=== PATIENT | male | born 1970 | race Caucasian/White ===

== ENCOUNTER 2019-01-08 16:55 | Emergency (ER) | payer MEDICAID ==
[~2019-01-08] VITALS: Ht 165.1 cm; Wt 80.0 kg
[~2019-01-08 16:55] MED LIST: AZIT250T PO; DICY10CA40 PO; DOCU-144 PO; HYDR-762 PO; ONDA4TAB35 PO
[2019-01-08 17:01] VITALS: Ht 165.1 cm; Wt 80.0 kg
[2019-01-08] MEDS ORDERED: SOD CHLORIDE 0.9% 800 ML IV ONE (17:30)
[2019-01-08] MEDS ORDERED: INSULIN LISPRO 100 UNIT/ML VIAL SC ONE (20:00)
[2019-01-08] MEDS ORDERED: ACCU-CHEK XX ONE (20:00)
--- NOTE | 2019-01-08 20:29 | ERD ---
ER Documentation Chief Complaint Chief Complaint Whole body paresthesia HPI This is a 48-year-old gentleman history of diabetes who presents with elevated blood sugars. He is describing paresthesia. For some reason at triage it was documented that he has a facial droop but this is not corroborated on bedside examination, patient report and family report. The patient describes paresthesias to his entire body worse to the left upper extremity and bilateral lower extremities. He states compliance with his diabetes medication. He denies any slurred speech, facial asymmetry, motor weakness. Patient states that his blood sugars been slightly elevated in the last several days. He describes compliance with his medication regimen. ROS All systems reviewed and are negative except as per history of present illness. Medications Home Meds Discontinued Scripts Dicyclomine HCl (Dicyclomine HCl) 10 Mg Capsule, 10 MG PO QID, #20 CAP Prov:LAMBERTO MOORE 04/01/15 Docusate Sodium* (Colace*) 100 Mg Capsule, 100 MG PO DAILY, #10 Prov:LAMBERTO MOORE 04/01/15 Azithromycin* (Zithromax*) 250 Mg Tablet, 250 MG PO DAILY, #4 TAB Prov:VARUN LACKEY MD 03/29/15 Ondansetron Hcl* (Zofran* ODT) 4 mg -ODT Tab.disper, 4 MG PO Q6 PRN for NAUSEA AND/OR VOMITING, #10 TAB Prov:DIANE ALCANTAR MD 03/29/15 Hydrocodone Bit-Acetaminophen* ([place]*) 10-325 Mg Tablet, 1 TAB PO Q6 PRN for PAIN, #7 TAB Prov:DIANE ALCANTAR MD 03/29/15 Allergies Allergies: Coded Allergies: No Known Allergy (Unverified , 01/08/19) PMhx/Soc History of Surgery: No Anesthesia Reaction: No Hx Neurological Disorder: No Hx Respiratory Disorders: No Hx Cardiac Disorders: Yes (HIGH CHOLESTEROL ) Hx Psychiatric Problems: No Hx Miscellaneous Medical Probl: Yes (DM ) Hx Alcohol Use: No Hx Substance Use: No Hx Tobacco Use: No Smoking Status: Never smoker FmHx Family History: diabetes Physical Exam Vitals Vital Signs Date Temp Pulse Resp B/P (MAP) Pulse Ox O2 O2 Flow FiO2 Time Delivery Rate 01/08/19 65 14 113/80 97 Room Air 18:52 (91) 01/08/19 69 18 112/63 99 Room Air 18:06 (79) 01/08/19 98.3 83 18 131/81 100 17:01 (98) Physical Exam General: Well developed, well nourished, no acute distress Head: Normocephalic, atraumatic. Eyes: Pupils equally reactive, EOM intact ENT: Moist mucous membranes Neck: Supple, no lymphadenopathy Respiratory: Lungs clear bilaterally, no distress Cardiovascular: RRR, no murmurs, rubs, or gallops Abdominal: Soft, non-tender, non-distended, no peritoneal signs : Deferred MSK: No edema, no unilateral swelling, 5/5 strength Neurologic: Alert and oriented, moving all extremities, normal speech, no focal weakness, no cerebellar signs, no pronator drift, normal rapid alternating mov ements, steady gait, no sensory deficit, normal finger to nose, no facial asymmetry Skin: No rash Psych: Normal mood Result Diagram: 01/08/19 1710 01/08/19 1710 Results 24 hrs Laboratory Tests Test 01/08/19 17:04 01/08/19 17:10 01/08/19 17:17 01/08/19 20:18 Bedside Glucose 372 mg/dL 235 mg/dL White Blood 6.5 10^3/ul Count Red Blood Count 5.15 10^6/ul Hemoglobin 15.4 g/dl Hematocrit 44.3 % Mean Corpuscular 86.0 fl Volume Mean Corpuscular 29.9 pg Hemoglobin Mean Corpuscular 34.8 g/dl Hemoglobin Macy nt Red Cell 11.6 % Distribution Width Platelet Count 142 10^3/UL Mean Platelet 11.6 fl Volume Immature 0.300 % Granulocytes % Neutrophils % 66.8 % Lymphocytes % 25.0 % Monocytes % 5.7 % Eosinophils % 1.7 % Basophils % 0.5 % Nucleated Red 0.0 /100WBC Blood Cells % Immature 0.020 10^3/ul Granulocytes # Neutrophils # 4.3 10^3/ul Lymphocytes # 1.6 10^3/ul Monocytes # 0.4 10^3/ul Eosinophils # 0.1 10^3/ul Basophils # 0.0 10^3/ul Nucleated Red 0.0 10^3/ul Blood Cells # Sodium Level 135 mmol/L Potassium Level 4.2 mmol/L Chloride Level 102 mmol/L Carbon Dioxide 24 mmol/L Level Anion Gap 9 Blood Urea 18 mg/dl Nitrogen Creatinine 0.47 mg/dl Est Glomerular > 60 mL/min Filtrat Rate mL/min Glucose Level 412 mg/dl Calcium Level 9.4 mg/dl Phosphorus Level 4.2 mg/dl Magnesium Level 1.7 mg/dl Troponin I < 0.012 ng/ml Blood Gas Blood venous Specimen Source Arterial Blood 01/08/2019 5:28:0 Date Drawn 5 PM Arterial Blood OTHER Gas Puncture Site Deni Test N/A Venous Blood pH 7.382 Venous Blood 44.0 mmHG pCO2 (Temp Corrected) Venous Blood pO2 44.7 mmHG (Temp Corrected) Venous Blood 25.6 mmol/L HCO3 Venous Blood 81.7 mmHG Oxygen Saturation Venous Blood 0.2 mmol/L Base Excess Venous Blood 15.2 g/dl Total Hemoglobin Venous Blood 81.2 % Oxyhemoglobin Venous Blood 0.1 % Methemoglobin Blood Gas A-a O2 52.3 mmHg Differential Carboxyhemoglobi 0.5 % n Blood Gas 37.0 C Temperature Blood Gas ROOM AIR Modality FiO2 21.0 % Blood Gas ZIYAD Agarwal Critical Value Read Back Blood Gas [facility] Notified Whom Blood Gas 01/08/2019 5:30:4 Notified Time 0 PM Current Medications Medications Dose Sig/Yesica Start Time Status Last (Trade) Ordered Route PRN Stop Time Admin Dose Reason Admin Sodium 800 ml @ ONCE ONCE 01/08/19 DC 01/08/19 Chloride 800 mls/hr IV 17:30 17:23 01/08/19 18:29 Insulin 10 unit ONCE ONCE 01/08/19 DC 01/08/19 Human SC 20:00 20:20 Lispro 01/08/19 20:01 (Humalog) Diagnostic 1 ea 2 HRS AFTER 01/08/19 DC Test (Pha) HUMALOG ONCE 20:00 (Accu-Chek) XX 01/08/19 20:01 Procedures/MDM EKG, MONITORS, & DIAGNOSTIC IMAGING: EKG: I reviewed and interpreted a 12-lead EKG. Rhythm: Normal sinus rhythm ST Changes: No contiguous ST segment elevations T waves: No contiguous T wave inversions Impression: No evidence of acute cardiac ischemia LAB INTERPRETATION: I reviewed the laboratory testing and it shows hyperglycemia without evidence of diabetic ketoacidosis MEDICAL DECISION MAKING: The patient is describing nonspecific paresthesias that do not fit a DIRECT MARKETING ANALYST distribution. The patient has paresthesias to bilateral upper extremities left greater than right and bilateral lower extremities equally. Despite what was documented in the triage note the patient does not have facial asymmetry. His paresthesias are nonspecific and likely secondary to hyperglycemia, consistent possibly with diabetic neuropathy. The patient otherwise has a nonfocal neurologic exam. NIH SS is 0 without signs of acute stroke syndrome. No indication for CT imaging of the brain. ER COURSE: * Patient was treated with IV fluids. Laboratory testing shows no evidence of cardiac ischemia or diabetic ketoacidosis. * Patient given 10 units of Humalog * Patient continues to be well-appearing, asymptomatic at this time and can be safely discharged. * Return precautions for signs and symptoms consistent with stroke were discussed with the patient and family member. CONSULTATION: None DISPOSITION PLAN: The patient does not have an identifiable emergent medical condition that warrants inpatient hospitalization at this time. The patient is deemed safe for discharge with outpatient follow-up. We discussed follow up with the patient's primary care doctor within 24 to 48 hours as needed. We also discussed return to the emergency room for worsening symptoms or worsening condition. Outpatient referral: None required Discharge Medications: Continue home diabetes regimen Departure Diagnosis: Primary Impression: Paresthesia Additional Impression: Hyperglycemia Condition: Stable Patient Instructions: Hyperglycemia (High Blood Sugar), Paraesthesias Ref[facility] Usted se davidson hecho un examen mdico de control que le indica que no est en adry condicin que requiera tratamiento urgente en el Departamento de Emergencia. Un estudio ms profundo y el tratamiento de townsend condicin pueden esperar sin ningn riesgo hasta que usted sea atendida/o en el consultorio de townsend mdico o adry clnica. Es responsabilidad suya arreglar adry mark para el seguimiento del dea. MANEJO DE CONDICIONES NO URGENTES EN EL FUTURO 1) Si usted tiene un mdico de atencin primaria: Usted debera llamar a townsend mdico de atencin primaria antes de venir al d epartamento de emergencia. Despus de las horas de consultorio, townsend doctor o townsend asociado/a est disponible por telfono. El mdico o enfermero de linden en el servicio telefnico puede asesorarle por elke medio para atender el problema, o dea contrario se puede programar adry mark. 2) Si usted no tiene un mdico de atencin primaria: Llame al mdico o clnica de referencia que aparece abajo cristiano las horas de consultorio para hacer adry mark para que le vean. CLINICAS: [facility] [phone] [facility] [phone] [facility] [phone] [place] [id number] [phone] [facility] [phone] [address] [facility]. [phone] [address] [facility]. [facility] () Usted se davidson hecho un examen mdico de control que le indica que no est en adry condicin que requiera tratamiento urgente en el Departamento de Emergencia. Un estudio ms profundo y el tratamiento de townsend condicin pueden esperar sin ningn riesgo hasta que usted sea atendida/o en el consultorio de townsend mdico o adry clnica. Es responsabilidad suya arreglar adry mark para el seguimiento del dea. MANEJO DE CONDICIONES NO URGENTES EN EL FUTURO 1) Si usted tiene un mdico de atencin primaria: Usted debera llamar a townsend mdico de atencin primaria antes de venir al departamento de emergencia. Despus de las horas de consultorio, townsend doctor o townsend asociado/a est disponible por telfono. El mdico o enfermero de linden en el servicio telefnico puede asesorarle por elke medio para atender el problema, o dea contrario se puede programar adry mark. 2) Si usted no tiene un mdico de atencin primaria: Llame al mdico o condado institucions de referencia que aparece abajo cristiano las horas de consultorio para hacer adry mark para que le vean. SI USTED NO PUEDE PAGAR PARA GARRET UN MEDICO puede ir a: [facility] [address] [place] [address] [facility] [address] [place] [address] [facility] [address] [place] [address] [facility] [address] [place] [address] Additional Instructions: Llame al doctor nombrado abajo (Referral Sources) MAANA y vandana adry MARK PARA DENTRO DE ADRY SEMANA. Dgale a la secretaria que nosotros le instruimos hacer esta mark.Avise o llame si townsend condicin se empeora antes de la mark. VARUN LACKEY MD Jan 08, 2019 20:29
[2019-01-08 21:00] VITALS: BP 107/80; PULSE 62; RESP 20
== END 2019-01-08 21:10 | disposition home or self-care (01) ==
LOC: E/R 16:55
DX: E11.65 Type 2 diabetes mellitus with hyperglycemia (principal); R42 Dizziness and giddiness
CPT/HCPCS: 36415; 80048; 82803; 82962; 83735; 84100; 84484; 85025; 93005; 96372; J1815; J7030; Z7502